=== PATIENT | female | born 1975 | race Caucasian/White ===

== ENCOUNTER → 2016-07-22 | Outpatient (REF) | payer OTHER ==
[~2016-07-22] MED LIST: ACET50TA PO; ACET50TAOT PO; ALPR0.5T3 PO; APAP325T PO; ASPI325T PO; ASPI32ECTA PO; ATEN50TA2 PO; DOCU10CA PO; ESCI10TA2 PO; GREE200C PO; HYDR50TAB PO; LEXA1TAB PO; MILKSUS PO; PROTPAK PO; SENO8.6T2 PO; TOPI50TA4 PO; TYLE325T5 PO; ZOCO20TA PO
[2016-07-22 13:42] LABS: REASON FOR REVIEW COMPREHENSIVE REVIEW
[2016-07-22 13:58] LABS: ERYTHROCYTE SEDIMENTATION RATE 31 mm/hr (0-20)
== END | disposition home or self-care (01) ==
LOC: M LAB REF 12:59
PROVIDERS: ATTEND Internal Medicine Medical Oncology
DX: D72.829 Elevated white blood cell count, unspecified (principal)

== ENCOUNTER → 2016-07-28 | Outpatient (REF) | payer OTHER | END | disposition home or self-care (01) | LOC: M LAB REF 12:27 | PROVIDERS: ATTEND Internal Medicine Medical Oncology | DX: D72.829 Elevated white blood cell count, unspecified (principal) ==

== ENCOUNTER → 2016-08-13 | Outpatient (REF) | payer OTHER ==
[2016-08-13 13:54] LABS: FOLATE 12.5 NG/ML
[2016-08-15 10:31] LABS: PRETREATED FOLATE FOR RBCFOL 8.2 NG/ML
== END | disposition home or self-care (01) ==
LOC: M LAB REF 13:00
PROVIDERS: ATTEND Internal Medicine Medical Oncology
DX: D72.829 Elevated white blood cell count, unspecified (principal)

== ENCOUNTER 2017-06-16 13:41 | Inpatient (IN) | payer OTHER ==
[~2017-06-16] VITALS: Ht 157.5 cm; Wt 104.3 kg
[~2017-06-16 13:41] MED LIST changes: -APAP325T PO; +APAP325T4 PO; +ASPI325T24 PO; -ASPI32ECTA PO; -SENO8.6T2 PO; +SENO8.6T5 PO; -TOPI50TA4 PO; +TOPI50TA9 PO
[2017-06-16] MEDS ORDERED: CEPH500C PO (14:06)
[2017-06-16] MEDS ORDERED: ESCI20TA PO (14:06)
--- NOTE | 2017-06-16 14:44 | REP ---
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 A small area of decreased attenuation is present in the right frontal lobe along a right ventricular shunt tube. This represents encephalomalacia. There is no intraparenchymal hemorrhage, acute infarct, mass or midline shift. A shunt is present with its tip in the anterior horn of the left lateral ventricle. There is no hydrocephalus. There is no extra cerebral collection. There is no fracture. The visualized sinuses are clear. IMPRESSION: 1. The patient is status post coiling of a right internal carotid artery . 2. Right parietal lobe encephalomalacia. 3. A shunt is present in the left lateral ventricle. There is no hydrocephalus. Signed by Robinson Rogers MD 06/16/2017 02:36 P
--- NOTE | 2017-06-16 15:43 | ECGEPIP ---
Stationary ECG Study [facility] - ED Test Date: 2017-06-16 Pat Name: SAMEER SILVA Department: Room: - Gender: F [employer] Lead: porsche : 1975 Requested By: BRENNA Hoffmann Order Number: [id number] Reading MD: Taty Meeks Measurements Intervals [place] Rate: 58 P: 6 RI: 122 QRS: -2 QRSD: 90 T: 30 QT: 418 QTc: 411 Interpretive Statements SINUS BRADYCARDIA DECREASED RATE 07/18/14 Electronically Signed On 06-16-2017 15:43:44 EST by Taty Meeks
[2017-06-16 16:22] LABS: ANION GAP 10 MEQ/L (8-16); BLOOD UREA NITROGEN 11 MG/DL (7-18); CALCIUM LEVEL 8.6 MG/DL (8.5-10.1); CARBON DIOXIDE LEVEL 22 MEQ/L (21-32); CHLORIDE LEVEL 110 MEQ/L (98-107); CREATININE FOR GFR 0.66 MG/DL (0.55-1.02); GLOMERULAR FILTRATION RATE > 60.0 (>58); GLUCOSE, FASTING 113 MG/DL (70-105); POTASSIUM SERUM 3.7 MEQ/L (3.5-5.1); SODIUM LEVEL 142 MEQ/L (136-145)
[2017-06-16 16:26] LABS: BASO # 0.1 10^3/uL (0.0-0.2); BASO % 0.8 % (0.0-1.0); EOS # 0.2 10^3/uL (0.0-0.50); EOS % 1.8 % (0.0-3.0); IMMATURE GRANULOCYTE % 0.3 % (0-0); LYMPH # 3.9 10^3/uL (1.5-4.5); LYMPH % 30.8 % (24.0-44.0); MEAN CORPUSCULAR HEMOGLOBIN 33.6 pg (27.0-33.0); MEAN CORPUSCULAR HGB CONC 34.5 g/dl (32.0-36.5); MEAN CORPUSCULAR VOLUME 97.2 fl (80.0-96.0); MONO # 0.9 10^3/uL (0.0-0.8); MONO % 7.4 % (0.0-5.0); NEUTROPHILS # 7.4 10^3/uL (1.8-7.7); NEUTROPHILS % 58.9 % (36.0-66.0); PLATELET COUNT, AUTOMATED 428 10^3/uL (150-450); WHITE BLOOD COUNT 12.5 10^3/uL (4.0-10.0)
[2017-06-16 17:20] LABS: ALBUMIN 3.4 GM/DL (3.2-5.2); ALBUMIN/GLOBULIN RATIO 0.89 (1.00-1.93); ALKALINE PHOSPHATASE 53 U/L (45-117); ALT/SGPT 27 U/L (12-78); AST/SGOT 11 U/L (7-37); BILIRUBIN,DIRECT < 0.1 MG/DL (0.0-0.2); BILIRUBIN,TOTAL 0.2 MG/DL (0.2-1.0); TOTAL PROTEIN 7.2 GM/DL (6.4-8.2)
[2017-06-16] MEDS ORDERED: ONDANSETRON 4MG/2ML VIAL (J2405) IV PRN (17:45)
--- NOTE | 2017-06-16 18:12 | REP ---
CT ABDOMEN AND PELVIS WITHOUT CONTRAST: HISTORY: Right lower quadrant pain. COMPARISON: 12/01/2014 The patient is status-post cholecystectomy. The liver, pancreas, spleen, adrenal glands and kidneys are normal in appearance. There is no mass or adenopathy. The visualized lungs are clear. The urinary bladder is normal in appearance. An IUD is present in the uterus. A small amount of fluid is present in the pelvis . A COSMETICS PRESSER shunt is present in the pelvis. There is a small 1.2 cm fat containing ventral abdominal hernia. Degenerative change is present in the spine. Two loculated fluid collections are present in the subcutaneous tissue along the right lateral abdomen. The anterior fluid collection measures 4.7 cm in transverse x 10 cm in AP dimensions. The posterior fluid collection measures 4.4 cm in transverse x 6.7 cm in AP dimensions. The fluid collections are decreased in size compared to the previous study. IMPRESSION: 1. The patient is status-post cholecystectomy. 2. There is a small amount of free fluid in the pelvis. 3. There are two loculated fluid collections in the subcutaneous tissue along the right lateral abdomen that are decreased in size compared to the previous study. 4. Small 1.2 cm ventral abdominal hernia. Signed by Robinson Rogers MD 06/16/2017 06:16 P
[2017-06-16] MEDS ORDERED: VITA500T53 PO (18:22)
[2017-06-16] MEDS ORDERED: ALPRAZolam 0.5 MG TAB PO PRN (18:45)
[2017-06-16 20:00] VITALS: BP 119/82
--- NOTE | 2017-06-16 20:20 | HPEPDOC ---
[facility] Medical History & Physical Date of Admission Jun 16, 2017 Primary Care Physician: Aissatou Mckeon Other Provider NEUROSURG: Dr. LOPEZ NEUROLOGY: [facility] [place]: Dr Perez Attending Physician: EVI REGAN MD History and Physical CHIEF COMPLAINT: Right facial numbness, right-sided weakness HISTORY OF PRESENT ILLNESS: 42-year-old female presents to the emergency department with acute onset of right facial numbness, right-sided weakness and difficulty with right-sided motor and dysarthria. She states this was an acute onset chest prior history of brain aneurysm with coil in 2006 as well. CAP SIZER shunt placement. 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 And was concerned that this may be a presenting symptom again this evening. She denies any visual disturbance or phobia, headache, nausea or vomiting. Her is with her in the room and he denies noticing any slurred speech nor difficulty with swallowing. But she has had noted ataxia. She relates to her right-sided weakness. Additionally, she is complaining of some vague abdominal pain that started earlier today. Located in the right lower quadrant with radiation to the right upper and mid abdomen area. She denies fevers, chills, diarrhea, dysuria, frequency, and no back pain. ED physician did contact the stroke center and [place]. They did not feel that she was a candidate for TPA. However, they did feel that she should be admitted for further workup, but did not feel that she needed to be transferred at this time. I've already spoken to Dr. Lr who is agreed to see the patient on consult as well. PAST MEDICAL HISTORY: Hypertension. History of seizure disorder. Panic attacks Right middle cerebral artery aneurysm repair/coiling in 2006 with CAP SIZER shunt placement History of tobacco use. Morbid obesity PAST SURGICAL HISTORY: Status post cholecystectomy. Right middle cerebral artery aneurysm repair/coiling in 2006 with CAP SIZER shunt placement SOCIAL HISTORY: She states she has been under some situational stress with her 17-year-old son at home but did not want to go any further detail, but she denied any suicidal ideation. Occasional tobacco use. She denies drug or alcohol use. FAMILY HISTORY: Noncontributory ALLERGIES: Please see below. REVIEW OF SYSTEMS: CONSTITUTIONAL: No fever, chills, weight loss, nausea or vomiting . HEENT: No headache, lightheadedness, blurred or loss of vision. No difficulty with speech or swallow. CARDIOVASCULAR: No chest pain, palpitations, paroxysmal nocturnal dyspnea or lower extremity edema RESPIRATORY: No cough, productive sputum, wheeze or hemoptysis GENITOURINARY: No dysuria, frequency, or discharge MUSCULOSKELETAL: Discoordination is noted with right upper and lower extremity. No bone, muscle or joint pain. GASTROINTESTINAL: No Nausea, vomiting, change in appetite. Bowel movements are regular without hematochezia or melena. No bladder or bowel incontinence. SKIN: No complaint of lesions, abrasions or rashes NEUROLOGICAL: Right facial numbness without facial droop or slurred speech. No blurred vision, headaches, or flaccid paralysis PSYCHIATRIC: History of anxiety. She feels that she may have some situational depression. However, she denies Audiovisual hallucinations. No suicidal ideations. ENDOCRINE: Denies history of diabetes or thyroid disorder. No history of endocrine abnormalities. HEMATOLOGIC/LYMPHATIC: No lumps, bumps or swelling of neck, axilla or groin. No night sweats or weight loss. HOME MEDICATIONS: Please see below. PHYSICAL EXAMINATION: VITAL SIGNS: Please see below. GENERAL: NAD, A&OX3, Pleasant HEENT: PERRLA, throat clear, neck supple, no JVD CARDIOVASCULAR: RRR RESPIRATORY: CTA Bilaterally ABDOMINAL: Obesity, Vague tenderness noted over the right abdomen. Normoactive bowel sounds. No palpable mass or rebound EXTREMITIES: no edema/no calf tenderness NEUROLOGICAL: CN'S II-XII grossly intact. However, she does have some noted discoordination with movement of the right upper extremity, more notably with search coordinator strength PSYCHOLOGICAL: negative LABORATORY DATA: See below. IMAGING: [ Head CT without contrast: 1. The patient is status post coiling of a right internal carotid artery . 2. Right parietal lobe encephalomalacia. 3. A shunt is present in the left lateral ventricle. There is no hydrocephalus. CT of the abdomen and pelvis without contrast: 1. The patient is status-post cholecystectomy. 2. There is a small amount of free fluid in the pelvis. 3. There are two loculated fluid collections in the subcutaneous tissue along the right lateral abdomen that are decreased in size compared to the previous study. 4. Small 1.2 cm ventral abdominal hernia. MICROBIOLOGY: Please see below. Twelve-lead EKG: Sinus bradycardia with ventricular rate of 58, but no acute ST- T wave abnormalities noted. IMPRESSION: 42-year-old female with dysarthria/discoordination involving the right upper and lower extremity with facial numbness. Additional complaint of some abdominal discomfort with no specific findings on CT of the abdomen and pelvis. Case has been reviewed with stroke center in [place]. She was not felt to be a TPA candidate. And recommendation was admit to [facility] with further workup and neurology consult. PROBLEM LIST: 1. CVA versus TIA 2. Acute abdominal pain with no significant findings on CT the abdomen and pelvis. 3. Hypertension. 4. History of seizure disorder. 5. Panic attacks 6. Right middle cerebral artery aneurysm repair/coiling in 2006 with CAP SIZER shunt placement 7. History of tobacco use. 8. Morbid obesity: November, medical treatment PLAN: She will be admitted to PCU with 4 hour neuro checks, on telemetry. Neurology has had an opportunity to see the patient in the emergency department and recommends her to continue on aspirin 81 mg daily for the next 2-3 days while she starts on Plavix 75 mg daily. We will continue her on current statin therapy. Continue home medications. PT/OT evaluation. MRI and MRA of the brain and carotids with gadolinium has been ordered. Appreciate further input from neurology in the morning. DVT PROPHYLAXIS: Aspirin, Plavix and teds and sequentials DISPOSITION: Anticipate hospitalization greater than 2 midnights. Vital Signs Vital Signs Date Time Temp Pulse Resp B/P (MAP) Pulse Ox O2 Delivery O2 Flow Rate FiO2 06/16/17 17:11 54 100 06/16/17 17:10 18 145/85 (105) 06/16/17 16:23 Room Air 06/16/17 13:42 97.9 Laboratory Data Labs 24H Laboratory Tests 2 06/16/17 15:59: Immature Granulocyte % (Auto) 0.3H, White Blood Count 12.5H, Red Blood Count 4.35, Hemoglobin 14.6, Hematocrit 42.3, Mean Corpuscular Volume 97.2H, Mean Corpuscular Hemoglobin 33.6H, Mean Corpuscular Hemoglobin Concent 34.5, Red Cell Distribution Width 14.0, Platelet Count 428, Neutrophils (%) (Auto) 58.9, Lymphocytes (%) (Auto) 30.8, Monocytes (%) (Auto) 7.4H, Eosinophils (%) (Auto) 1.8, Basophils (%) (Auto) 0.8, Neutrophils # (Auto) 7.4, Lymphocytes # (Auto) 3.9, Monocytes # (Auto) 0.9H, Eosinophils # (Auto) 0.2, Basophils # (Auto) 0.1, Immature Granulocyte # (Auto) 0.0, Nucleated Red Blood Cells % (auto) 0.0, Urine Appearance CLEAR, Urine Color STRAW, Urine pH 7.0, Urine Specific [place] 1.010, Urine Protein NEGATIVE, Urine Glucose (UA) NEGATIVE, Urine Ketones NEGATIVE, Urine Urobilinogen 0.2, Urine Bilirubin NEGATIVE, Urine Leukocyte Esterase NEGATIVE, Urine Blood NEGATIVE, Urine Nitrite NEGATIVE, Urine WBC (Auto ) 1, Urine RBC (Auto) 0, Urine Hyaline Casts (Auto) 0, Urine Bacteria (Auto) NEGATIVE, Urine Squamous Epithelial Cells 2, Urine Sperm (Auto) , Anion Gap 10, Glomerular Filtration Rate > 60.0, Blood Urea Nitrogen 11, Creatinine 0.66, Sodium Level 142, Potassium Level 3.7, Chloride Level 110H, Carbon Dioxide Level 22, Calcium Level 8.6, Aspartate Amino Transf (AST/SGOT) 11, Alanine Aminotransferase (ALT/SGPT) 27, Alkaline Phosphatase 53, Total Bilirubin 0.2, Direct Bilirubin < 0.1, Total Protein 7.2, Albumin 3.4, Albumin/Globulin Ratio 0.89L, Lipase 125 06/16/17 18:23: Total Creatine Kinase 81, Creatine Kinase MB 2.0, Creatine Kinase MB Relative Index 2.46, Troponin I < 0.02 CBC/BMP Laboratory Tests 06/16/17 15:59 Red Blood Count 4.35, Mean Corpuscular Volume 97.2 H, Mean Corpuscular Hemoglobin 33.6 H, Mean Corpuscular Hemoglobin Concent 34.5, Red Cell Distribution Width 14.0, Neutrophils (%) (Auto) 58.9, Lymphocytes (%) (Auto) 30.8, Monocytes (%) (Auto) 7.4 H, Eosinophils (%) (Auto) 1.8, Basophils (%) ( Auto) 0.8, Neutrophils # (Auto) 7.4, Lymphocytes # (Auto) 3.9, Monocytes # (Auto ) 0.9 H, Eosinophils # (Auto) 0.2, Basophils # (Auto) 0.1, Calcium Level 8.6 Home Medications Scheduled Aspirin (Aspirin EC) 325 Mg Tabec, 325 MG PO DAILY Atenolol (Atenolol) 50 Mg Tab, 50 MG PO DAILY Cephalexin Monohydrate (Cephalexin) 500 Mg Cap, 5,100 MG PO BID filled / for 10 days Cyanocobalamin (Vitamin B12) 500 Mcg Tab, 500 MCG PO DAILY Escitalopram Oxalate (Escitalopram Oxalate) 20 Mg Tab, 20 MG PO DAILY Simvastatin (Zocor) 20 Mg Tab, 20 MG PO DAILY Topiramate (Topiramate) 50 Mg Tab, 150 MG PO BID Scheduled PRN Acetaminophen (Apap) 325 Mg Tab, 650 MG PO Q4HP PRN for MILD PAIN (PS 1-4) Alprazolam (Alprazolam) 0.5 Mg Tab, 0.5 MG PO BIDP PRN for ANXIETY Allergies Coded Allergies: Contrast Media (Verified Allergy, Severe, ANAPHYLAXIS, 11/24/07) Penicillins (Verified Allergy, Mild, HIVES, 10/12/12) Penicillins Cross Reactors (Verified Allergy, Mild, HIVES, 10/12/12) MILO [place]S DO Jun 16, 2017 20:20
[2017-06-16] MEDS: TOPIRAMATE (TopAMAX) 25 MG TAB PO SCH (21:16)
[2017-06-16] MEDS: DOCUSATE SODIUM 100 MG CAP PO SCH (21:16)
[2017-06-16] MEDS: ACETAMINOPHEN TAB 650MG DOSE (2X325MG) PO PRN (23:25)
[2017-06-17] VITALS: BP 125/77
[2017-06-17 04:00] VITALS: BP 125/73
[2017-06-17] MEDS: ACETAMINOPHEN TAB 650MG DOSE (2X325MG) PO PRN ×2 (05:07→13:33)
[2017-06-17 06:08] LABS: MEAN CORPUSCULAR HEMOGLOBIN 33.3 pg (27.0-33.0); MEAN CORPUSCULAR HGB CONC 34.1 g/dl (32.0-36.5); MEAN CORPUSCULAR VOLUME 97.5 fl (80.0-96.0); PLATELET COUNT, AUTOMATED 405 10^3/uL (150-450); RED CELL DISTRIBUTION WIDTH 13.9 % (11.5-14.5); WHITE BLOOD COUNT 12.9 10^3/uL (4.0-10.0)
[2017-06-17 06:28] LABS: ANION GAP 8 MEQ/L (8-16); BLOOD UREA NITROGEN 13 MG/DL (7-18); CALCIUM LEVEL 8.5 MG/DL (8.5-10.1); CARBON DIOXIDE LEVEL 20 MEQ/L (21-32); CHLORIDE LEVEL 109 MEQ/L (98-107); GLOMERULAR FILTRATION RATE > 60.0 (>58); GLUCOSE, FASTING 104 MG/DL (70-105); POTASSIUM SERUM 3.7 MEQ/L (3.5-5.1); SODIUM LEVEL 137 MEQ/L (136-145)
[2017-06-17 08:00] VITALS: BP 119/72
[2017-06-17] MEDS ORDERED: SIMVASTATIN 20 MG TAB PO SCH (09:00)
[2017-06-17] MEDS ORDERED: CLOPIDOGREL 75 MG TAB PO SCH (09:00)
[2017-06-17] MEDS ORDERED: ATENOLOL 50 MG TAB PO SCH (09:00)
[2017-06-17] MEDS ORDERED: MIRALAX *UNIT DOSE* 17GM PACKET PO SCH (09:00)
[2017-06-17] MEDS ORDERED: ESCITALOPRAM OXALATE 10 MG TAB (LEXAPRO) PO SCH (09:00)
[2017-06-17] MEDS ORDERED: TOPIRAMATE (TopAMAX) 100 MG TAB PO SCH (09:00)
[2017-06-17] MEDS ORDERED: ASPIRIN 81 MG ENTERIC TAB PO SCH (09:00)
[2017-06-17] MEDS ORDERED: TOPIRAMATE (TopAMAX) 25 MG TAB PO SCH (09:00)
[2017-06-17] MEDS ORDERED: CYANOCOBALAMIN 500 MCG TAB PO SCH (09:00)
[2017-06-17] MEDS: TOPIRAMATE (TopAMAX) 25 MG TAB PO SCH (09:00)
[2017-06-17 09:11] VITALS: BP 119/72
[2017-06-17] MEDS: DOCUSATE SODIUM 100 MG CAP PO SCH (09:11)
[2017-06-17] MEDS ORDERED: ALPRAZolam 0.25 MG TAB PO PRN (09:30)
[2017-06-17] MEDS ORDERED: PROHANCE 279.3MG/ML 15ML VIAL (A9576) As Ordered ONE (10:07)
--- NOTE | 2017-06-17 12:49 | REP ---
MR BRAIN WITHOUT CONTRAST: HISTORY: TIA. 3D srsh-ka-udffam MR angiography was performed at the level of the [place]. Comparison 07/18/2014. 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 There is loss of the normal hyperintense signal in the superior cavernous and supraclinoid right internal carotid artery secondary to artifact. There is no recurrent aneurysm. There is no new aneurysm or arteriovenous malformation. There are no atherosclerotic lesions. The major intracranial vessels are patent. The vertebral arteries are equal in size. 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 There is no recurrent aneurysm. Signed by Robinson Rogers MD 06/17/2017 02:46 P
[2017-06-17 13:05] VITALS: BP 118/79
--- NOTE | 2017-06-17 13:35 | REP ---
MRA CAROTIDS WITH AND WITHOUT CONTRAST: HISTORY: TIAs. CONTRAST: ProHance 25 mL. Unenhanced 3D kvbg-cd-wvxfic and contrast enhanced MR angiography were performed at the level of the carotid bifurcations. The examination is limited due to technical issues. The distal common carotid arteries and origins of the external and internal carotid arteries are normal. The vertebral arteries are equal in size and patent. There are no atherosclerotic lesions. IMPRESSION: Normal MRA carotids. Signed by Robinson Rogers MD 06/17/2017 02:45 P
--- NOTE | 2017-06-17 15:08 | REP ---
MR BRAIN WITHOUT CONTRAST: HISTORY: TIA. COMPARISON: 01/08/2015. A small area of increased signal intensity on T2-weighted images is present in the right thalamus. This represents an old lacunar infarction. Mixed increased and decreased signal intensity on T2-weighted images is present in the posterior right temporal lobe. This represents gliosis and hemosiderin along a ventricular shunt. Areas of increased signal intensity on T2-weighted images are present in the periventricular and subcortical white matter. This represents small vessel ischemic disease. There is no acute intraparenchymal hemorrhage, acute infarct, mass, or midline shift. A shunt is present in the body of the left lateral ventricle. There is no hydrocephalus or extracerebral collection. 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 A small amount of metal artifact is present in the right supraclinoid area. The sinuses are clear. IMPRESSION: 1. Old right thalamic lacunar infarction. 2. There is an of gliosis with hemosiderin deposition in the posterior right temporal lobe along a ventricular shunt. 3. Small vessel ischemic disease. 4. 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 Signed by Robinson Rogers MD 06/17/2017 03:21 P
--- NOTE | 2017-06-17 15:34 | DS.PDOC ---
Discharge Summary General Date of Admission Jun 16, 2017 at 17:08 Date of Discharge 06/17/17 Specialist/Consultants Involve: SOHAIL DIAZ MD Discharge Summary PROCEDURES PERFORMED DURING STAY: None. ADMITTING/DISCHARGE DIAGNOSES: 1. . TIA COMPLICATIONS/CHIEF COMPLAINT: Right Sided Weakness. HISTORY OF PRESENT ILLNESS: . 42-year-old female with past medical history of hypertension, seizure disorder, panic attacks, tobacco use, morbid obesity, and right middle cerebral artery aneurysm s/p repair/coiling in 2006 with CORPORATE SAFETY MANAGER shunt placement presented to the ER with a chief complaint of right-sided facial droop, slurring of speech, and right upper and right lower extremity weakness. The patient denied any visual disturbance, headache, nausea, vomiting, or any acute complaints of fevers, chills, diarrhea, dysuria, frequency, or any other acute complaints. In the ER, the stroke center at [facility] was contacted given the patient's clinical history , and complaints. However, the patient was not deemed a candidate for TPA therapy. The patient was admitted to the hospitalist service for further evaluation and monitoring. A consult was placed to Dr. Gonzalez of neurology, who evaluated the patient in the ER. A CT scan of the head revealed no acute findings. During hospitalization, an MRI of the brain, MRA of the brain, and MRA of the carotid arteries revealed no acute findings. The patient's neurological symptoms of right-sided facial droop, and right-sided weakness resolved during her hospital stay. I did discuss the patient's clinical course, and imaging findings with the patient's neurologist from the [place], [place] area, Dr. Weems ([phone]), as well as our in-house neurologist, Dr. Gonzalez. At this time, the patient's medication regimen has been changed to Plavix 75 mg daily and simvastatin. The patient has been advised to continue aspirin 81mg for a total of 5 days in addition to her Plavix, and then to discontinue the aspirin. I have went over these instructions with the patient and her at the bedside, and they have verbalized understanding of the same. I have advised the patient to follow-up with her primary care physician within 7 days. She has also been instructed to follow-up with her neurologist within 1-2 weeks. The patient has been consulted to return to the ER for any acute emergencies. DISCHARGE MEDICATIONS: Please see below. ALLERGIES: Please see below. PHYSICAL EXAMINATION ON DISCHARGE: VITAL SIGNS: Please see below. GENERAL: Awake, alert, oriented 4 HEENT: Normocephalic, atraumatic NECK: No JVD CARDIOVASCULAR EXAMINATION: Normal rate, normal S1, S2 RESPIRATORY EXAMINATION: Clear to auscultation bilaterally ABDOMINAL EXAMINATION: Soft, nontender, nondistended EXTREMITIES: No erythema or tenderness NEUROLOGICAL EXAMINATION: 5/5 strength of extremities 4, cranial nerves II-11 intact PSYCHIATRIC EXAMINATION: LABORATORY DATA: Please see below. IMAGING: MRA CAROTIDS WITH AND WITHOUT CONTRAST: HISTORY: TIAs. CONTRAST: ProHance 25 mL. Unenhanced 3D otxb-na-lalczn and contrast enhanced MR angiography were performed at the level of the carotid bifurcations. The examination is limited due to technical issues. The distal common carotid arteries and origins of the external and internal carotid arteries are normal. The vertebral arteries are equal in size and patent. There are no atherosclerotic lesions. IMPRESSION: Normal MRA carotids. MR BRAIN WITHOUT CONTRAST: HISTORY: TIA. 3D ipac-td-suyeqy MR angiography was performed at the level of the [place] of [place]. Comparison 07/18/2014. 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 There is loss of the normal hyperintense signal in the superior cavernous and supraclinoid right internal carotid artery secondary to artifact. There is no recurrent aneurysm. There is no new aneurysm or arteriovenous malformation. There are no atherosclerotic lesions. The major intracranial vessels are patent. The vertebral arteries are equal in size. 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 There is no recurrent aneurysm. PROGNOSIS: Fair ACTIVITY: As tolerated. DIET: . 2 g low sodium diet DISCHARGE PLAN: DISPOSITION: . Home DISCHARGE INSTRUCTIONS: The patient has been advised to continue aspirin 81mg for a total of 5 days in addition to her Plavix, and then to discontinue the aspirin. I have went over these instructions with the patient and her at the bedside, and they have verbalized understanding of the same. I have advised the patient to follow- up with her primary care physician within 7 days. She has also been instructed to follow-up with her neurologist within 1-2 weeks. The patient has been consulted to return to the ER for any acute emergencies. DISCHARGE CONDITION: Stable. TIME SPENT ON DISCHARGE: Greater than 30 minutes. Vital Signs/I&Os Vital Signs Date Time Temp Pulse Resp B/P (MAP) Pulse Ox O2 Delivery O2 Flow Rate FiO2 06/17/17 13:05 96.6 63 18 118/79 (92) 97 Room Air I&O- Last 24 Hours up to 6 AM 06/18/17 06:00 Intake Total 240 ml Balance 240 ml Laboratory Data Labs 24H Laboratory Tests 2 06/16/17 15:59: Immature Granulocyte % (Auto) 0.3H, White Blood Count 12.5H, Red Blood Count 4.35, Hemoglobin 14.6, Hematocrit 42.3, Mean Corpuscular Volume 97.2H, Mean Corpuscular Hemoglobin 33.6H, Mean Corpuscular Hemoglobin Concent 34.5, Red Cell Distribution Width 14.0, Platelet Count 428, Neutrophils (%) (Auto) 58.9, Lymphocytes (%) (Auto) 30.8, Monocytes (%) (Auto) 7.4H, Eosinophils (%) (Auto) 1.8, Basophils (%) (Auto) 0.8, Neutrophils # (Auto) 7.4, Lymphocytes # (Auto) 3.9, Monocytes # (Auto) 0.9H, Eosinophils # (Auto) 0.2, Basophils # (Auto) 0.1, Immature Granulocyte # (Auto) 0.0, Nucleated Red Blood Cells % (auto) 0.0, Urine Appearance CLEAR, Urine Color STRAW, Urine pH 7.0, Urine Specific [place] 1.010, Urine Protein NEGATIVE, Urine Glucose (UA) NEGATIVE, Urine Ketones NEGATIVE, Urine Urobilinogen 0.2, Urine Bilirubin NEGATIVE, Urine Leukocyte Esterase NEGATIVE, Urine Blood NEGATIVE, Urine Nitrite NEGATIVE, Urine WBC (Auto ) 1, Urine RBC (Auto) 0, Urine Hyaline Casts (Auto) 0, Urine Bacteria (Auto) NEGATIVE, Urine Squamous Epithelial Cells 2, Urine Sperm (Auto) , Anion Gap 10, Glomerular Filtration Rate > 60.0, Blood Urea Nitrogen 11, Creatinine 0.66, Sodium Level 142, Potassium Level 3.7, Chloride Level 110H, Carbon Dioxide Level 22, Calcium Level 8.6, Aspartate Amino Transf (AST/SGOT) 11, Alanine Aminotransferase (ALT/SGPT) 27, Alkaline Phosphatase 53, Total Bilirubin 0.2, Direct Bilirubin < 0.1, Total Protein 7.2, Albumin 3.4, Albumin/Globulin Ratio 0.89L, Lipase 125 06/16/17 18:23: Total Creatine Kinase 81, Creatine Kinase MB 2.0, Creatine Kinase MB Relative Index 2.46, Troponin I < 0.02 06/17/17 02:43: Total Creatine Kinase 70, Creatine Kinase MB 1.7, Creatine Kinase MB Relative Index 2.42, Troponin I < 0.02 06/17/17 05:27: Nucleated Red Blood Cells % (auto) 0.0, Anion Gap 8, Glomerular Filtration Rate > 60.0, Blood Urea Nitrogen 13, Creatinine 0.50L, Sodium Level 137, Potassium Level 3.7, Chloride Level 109H, Carbon Dioxide Level 20L, Calcium Level 8.5 06/17/17 09:48: Total Creatine Kinase 68, Creatine Kinase MB 1.7, Creatine Kinase MB Relative Index 2.50, Troponin I < 0.02 CBC/BMP Laboratory Tests 06/16/17 15:59 Red Blood Count 4.35, Mean Corpuscular Volume 97.2 H, Mean Corpuscular Hemoglobin 33.6 H, Mean Corpuscular Hemoglobin Concent 34.5, Red Cell Distribution Width 14.0, Neutrophils (%) (Auto) 58.9, Lymphocytes (%) (Auto) 30.8, Monocytes (%) (Auto) 7.4 H, Eosinophils (%) (Auto) 1.8, Basophils (%) ( Auto) 0.8, Neutrophils # (Auto) 7.4, Lymphocytes # (Auto) 3.9, Monocytes # (Auto ) 0.9 H, Eosinophils # (Auto) 0.2, Basophils # (Auto) 0.1, Calcium Level 8.6 06/17/17 05:27 Red Blood Count 4.39, Mean Corpuscular Volume 97.5 H, Mean Corpuscular Hemoglobin 33.3 H, Mean Corpuscular Hemoglobin Concent 34.1, Red Cell Distribution Width 13.9, Calcium Level 8.5 Discharge Medications Scheduled Aspirin (Aspirin EC) 325 Mg Tabec, 325 MG PO DAILY, (Reported) Atenolol (Atenolol) 50 Mg Tab, 50 MG PO DAILY, (Reported) Cephalexin Monohydrate (Cephalexin) 500 Mg Cap, 5,100 MG PO BID, (Reported) filled 06/12 for 10 days Cyanocobalamin (Vitamin B12) 500 Mcg Tab, 500 MCG PO DAILY, (Reported) Escitalopram Oxalate (Escitalopram Oxalate) 20 Mg Tab, 20 MG PO DAILY, (Reported ) Simvastatin (Zocor) 20 Mg Tab, 20 MG PO DAILY, (Reported) Topiramate (Topiramate) 50 Mg Tab, 150 MG PO BID, (Reported) Scheduled PRN Acetaminophen (Apap) 325 Mg Tab, 650 MG PO Q4HP PRN for MILD PAIN (PS 1-4), ( Reported) Alprazolam (Alprazolam) 0.5 Mg Tab, 0.5 MG PO BIDP PRN for ANXIETY, (Reported) Allergies Coded Allergies: Contrast Media (Verified Allergy, Severe, ANAPHYLAXIS, 11/24/07) Penicillins (Verified Allergy, Mild, HIVES, 10/12/12) Penicillins Cross Reactors (Verified Allergy, Mild, HIVES, 10/12/12) KEY KIMBALL MD Jun 17, 2017 15:34
[2017-06-17] MEDS ORDERED: CLOP75TA2 PO (15:35)
[2017-06-17] MEDS ORDERED: ASPI81TAEC PO (15:35)
--- NOTE | 2017-06-17 15:40 | CR ---
DATE OF NEUROLOGY CONSULTATION: 06/16/2017 REFERRING PHYSICIAN: Jeremias Christina MD REASON FOR CONSULTATION: Suspected transient ischemic attack (TIA) or stroke. 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 The patient has been on aspirin 325 mg since 07/18/2014 at the last stroke. The patient states that she continues to smoke. The patient states she smokes half a pack a day; however, that has been clarified that the patient is actually smoking a minimum of one full pack a day. The patient herself is a poor historian regarding describing the events of today. She states most of her discomfort today involves right lower abdominal pain. She will be worked up for this during this admission. In the meantime, the patient had a head CT, which was unrevealing for any new strokes. She will be having an MRI of the brain, MR angiogram of the head, and MR angiogram of the neck with and without gadolinium to assess for any stenosis. She currently uses simvastatin 20 mg every day. She denies any left upper or lower extremity symptoms. The patient's states that the patient has a right-sided facial droop. The patient is having some word-finding difficulties at times. Her blood pressure has been in the 130s to 140s during the admission. REVIEW OF SYSTEMS: 14-point review of systems is obtained and negative except as per history of present illness (HPI). PAST MEDICAL HISTORY: Hypertension. History of seizure. Panic attacks. Cholecystectomy. Status post foot surgery. Right middle cerebral artery (MCA) aneurysm, status post rupture and coiling and clipping. FAMILY HISTORY: Noncontributory. SOCIAL HISTORY: The patient smokes one pack of tobacco per day. Denies use of alcohol or illicit drugs. PHYSICAL EXAMINATION: Blood pressure is 137/84, pulse rate is 78, respiratory rate is 20, oxygenation 99% on room air. Patient is afebrile. NEUROLOGIC EXAM: Patient is able to speak without any significant dysarthria. The patient at times gets flustered and has some stuttering. Pupils are 3 mm, round, reactive to light. Extraocular movements are intact in all directions without nystagmus. Sensation in V1, V2, V3 is decreased to light touch over the right side compared to the left. There is slight flattening of the right nasolabial fold with mild facial weakness. Patient can raise eyebrows well. Tongue is midline. There is significant weakness of the right upper extremity. At times, the patient has reasonable strength but has significant give-way weakness. [id number] in bilateral upper extremities does not reveal any gross ataxia or dysmetria. Strength testing in bilateral lower extremities is unremarkable and normal, 5/5. Deep tendon reflexes are 2+ throughout. Babinski signs are absent. Sensory is intact to light touch on the left side; however, slightly decreased to light touch on the right side. Gait deferred. ASSESSMENT: 42-year-old female with history of subarachnoid hemorrhage secondary to ruptured right MCA aneurysm, history of left thalamic stroke, prior stroke in July 2014, and prior stroke in 2007, presenting with symptoms of worsening right upper extremity weakness, occasional word-finding difficulties, and worsening paresthesias of the right upper and lower extremity and face. PLAN: 1. Obtain MRI brain without contrast, MR angiogram head without contrast, MR angiogram neck with and without contrast. 2. Switch to Plavix 75 mg by mouth daily. Cut back aspirin to 81 mg by mouth daily for next 5 days, then discontinue. Continue simvastatin 20 mg by mouth daily. Physical therapy (PT)/occupational therapy (OT) evaluation. Management of right lower abdominal pain as per primary team. Recommend telemetry monitoring.
== END 2017-06-17 16:18 | disposition home or self-care (01) | DRG 47 ==
LOC: M ED 13:41 → M ED INP 17:08
PROVIDERS: ADMIT Hospitalist; ATTEND Hospitalist
DX: G45.9 Transient cerebral ischemic attack, unspecified (principal); Z68.41 Body mass index [BMI] 40.0-44.9, adult; E66.01 Morbid (severe) obesity due to excess calories; R10.31 Right lower quadrant pain; G40.909 Epilepsy, unspecified, not intractable, without status epilepticus; F41.0 Panic disorder [episodic paroxysmal anxiety]; R47.1 Dysarthria and anarthria; R29.810 Facial weakness; K43.9 Ventral hernia without obstruction or gangrene; Z79.82 Long term (current) use of aspirin; Z98.2 Presence of cerebrospinal fluid drainage device; Z79.899 Other long term (current) drug therapy; Z88.0 Allergy status to penicillin; Z91.041 Radiographic dye allergy status; Z87.891 Personal history of nicotine dependence

== ENCOUNTER → 2018-05-20 | Outpatient (CLI) | payer OTHER | LOC: M RAD 14:00 | DX: Z98.2 Presence of cerebrospinal fluid drainage device (principal) | CPT/HCPCS: 75809 ==

== ENCOUNTER 2019-05-20 10:53 | Emergency (ER) | payer OTHER ==
[~2019-05-20] VITALS: Ht 157.5 cm; Wt 95.5 kg
[~2019-05-20 10:53] MED LIST changes: +ACET500T15 PO; -ACET50TA PO; -ACET50TAOT PO; +ASPI-1 PO; +ASPI-255 PO; -ASPI325T PO; -ASPI325T24 PO; +ASPI81TAEC PO; +CEPH500C PO; +CLOP75TA2 PO; +ESCI20TA PO; +MAPA500T2 PO; +MILK120011 PO; -MILKSUS PO; +VITA500T17 PO
[2019-05-20 11:10] VITALS: BP 180/92
[2019-05-20] MEDS ORDERED: PRED20TA PO (11:17)
--- NOTE | 2019-05-20 13:01 | REP ---
CT brain: 05/20/2019. Indication: Stroke. Comparison: 06/16/2017. Technique: Unenhanced axial images of the head were obtained from skull base to vertex. Findings: Right parietal approach ventriculostomy shunt catheter is present with minimal adjacent edema along the course of the catheter. The distal tip is near the foramen of Monro on the left which is stable. There is no hydrocephalus. There is no acute intracranial hemorrhage, acute cortical infarction or significant mass effect. Sequelae of previous distal right ICA aneurysm coil ablation are redemonstrated. The configuration of the coils remains stable. Impression: No acute intracranial process. Right parietal approach ventriculostomy shunt catheter without hydrocephalous. Postprocedural sequelae status post endovascular coil ablated distal right ICA aneurysm. Electronically Signed by Aaron Rivas DO 05/20/2019 12:53 P
--- NOTE | 2019-05-20 13:31 | REP ---
Duplex extremity venous ultrasound: Bilateral lower extremity. History: Bilateral leg pain. Question DVT. Findings: The deep veins are anechoic and fully compressible from the groin to the popliteal fossa in the left and right lower extremity. Color flow imaging is homogeneous. Spectral Doppler interrogation demonstrates intact respiratory variation in flow and normal manual augmentation of flow. There is no evidence of deep vein thrombosis. Impression: Negative bilateral lower extremity duplex venous ultrasound. No evidence of deep vein thrombosis. Electronically Signed by Pieter Cervantes MD 05/20/2019 01:23 P
[2019-05-20 13:57] LABS: BASO % 0.1 % (0.0-1.0); HEMOGLOBIN 14.7 g/dl (12.0-15.5); LYMPH # 3.9 10^3/uL (1.5-5.0); LYMPH % 18.4 % (24.0-44.0); MEAN CORPUSCULAR HEMOGLOBIN 33.9 pg (27.0-33.0); MEAN CORPUSCULAR HGB CONC 33.4 g/dl (32.0-36.5); MEAN CORPUSCULAR VOLUME 101.6 fl (80.0-96.0); MONO # 1.1 10^3/uL (0.0-0.8); MONO % 5.3 % (0.0-5.0); NEUTROPHILS % 75.4 % (36.0-66.0); PLATELET COUNT, AUTOMATED 374 10^3/uL (150-450); RED BLOOD COUNT 4.33 10^6/uL (4.00-5.40); WHITE BLOOD COUNT 21.2 10^3/uL (4.0-10.0)
[2019-05-20 14:09] LABS: INR 0.98; PROTHROMBIN TIME 12.7 SECONDS (11.8-14.0)
[2019-05-20 14:10] LABS: PARTIAL THROMBOPLASTIN TIME 25.8 SECONDS (25.0-38.4)
--- NOTE | 2019-05-20 14:14 | REP ---
Left knee series: Five views. History: Severe pain. Findings: Five views of the left knee demonstrate mild old post-traumatic deformity of the distal femoral diaphysis. There is a fabella posterolaterally. There is some vascular calcification as well. No acute fracture, subluxation or joint effusion is evident. Impression: No acute bony abnormality. Old mild post-traumatic deformity distal femur. Electronically Signed by Pieter Cervantes MD 05/20/2019 02:06 P
--- NOTE | 2019-05-20 14:23 | REP ---
Four views of the patient: 05/20/2019. Indication: Mental status change. Comparison: 11/06/2014. Findings: The ventriculoperitoneal shunt is intact with evidence of previous surgical/procedural sequelae in the right lower quadrant of the abdomen. Impression: Intact CHIEF WARDEN shunt. Electronically Signed by Aaron Rivas DO 05/20/2019 02:15 P
[2019-05-20 14:26] LABS: CK-MB VALUE MASS 1.2 NG/ML (<3.6); MB/CK RELATIVE INDEX 2.45 (< OR =4)
== END 2019-05-20 15:37 | disposition home or self-care (01) ==
LOC: M ED 10:53
DX: I83.813 Varicose veins of bilateral lower extremities with pain (principal); M25.511 Pain in right shoulder; M54.2 Cervicalgia; R06.02 Shortness of breath; T38.0X5A Adverse effect of glucocorticoids and synthetic analogues, initial encounter; I10 Essential (primary) hypertension; E78.5 Hyperlipidemia, unspecified; R51 Headache; Z86.73 Personal history of transient ischemic attack (TIA), and cerebral infarction without residual deficits; I67.1 Cerebral aneurysm, nonruptured; Z88.0 Allergy status to penicillin; Z91.041 Radiographic dye allergy status; Z79.899 Other long term (current) drug therapy; Z79.02 Long term (current) use of antithrombotics/antiplatelets; Z98.2 Presence of cerebrospinal fluid drainage device

== ENCOUNTER 2020-12-18 12:22 | Observation (INO) | payer BC, OTHER ==
[~2020-12-18] VITALS: Ht 157.5 cm; Wt 90.9 kg
[~2020-12-18 12:22] MED LIST changes: +ASPI-569 PO; -ASPI81TAEC PO; +ESCI10TA16 PO; -ESCI10TA2 PO; -ESCI20TA PO; +ESCI20TA16 PO; +PRED20TA PO
[2020-12-18 14:42] LABS: BASO # 0.1 10^3/uL (0.0-0.2); BASO % 0.5 % (0.0-1.0); EOS # 0.2 10^3/uL (0.0-0.5); EOS % 1.9 % (0.0-3.0); HEMATOCRIT 47.7 % (36.0-47.0); HEMOGLOBIN 15.8 g/dl (12.0-15.5); LYMPH # 2.9 10^3/uL (1.5-5.0); LYMPH % 22.7 % (24.0-44.0); MEAN CORPUSCULAR HEMOGLOBIN 33.5 pg (27.0-33.0); MEAN CORPUSCULAR HGB CONC 33.1 g/dl (32.0-36.5); MEAN CORPUSCULAR VOLUME 101.3 fl (80.0-96.0); MONO # 0.9 10^3/uL (0.0-0.8); MONO % 6.7 % (2.0-8.0); NEUTROPHILS # 8.8 10^3/uL (1.5-8.5); NEUTROPHILS % 67.9 % (36.0-66.0); PLATELET COUNT, AUTOMATED 311 10^3/uL (150-450); RED BLOOD COUNT 4.71 10^6/uL (4.00-5.40); WHITE BLOOD COUNT 12.9 10^3/uL (4.0-10.0)
--- NOTE | 2020-12-18 15:02 | REPVR ---
PROCEDURE INFORMATION: Exam: CT Head Without Contrast Exam date and time: 12/18/2020 2:51 PM Age: 45 years old Clinical indication: Pain; Other: Nuero; Additional info: CVA - nursing interventions must not delay CT TECHNIQUE: Imaging protocol: Computed tomography of the head without contrast. Radiation optimization: All CT scans at this facility use at least one of these dose optimization techniques: automated exposure control; mA and/or kV adjustment per patient size (includes targeted exams where dose is matched to clinical indication); or iterative reconstruction. Other technique: STROKE PROTOCOL was implemented. COMPARISON: CT Head without contrast 05/20/2019 12:37 PM FINDINGS: Brain: No acute infarction, masses or hemorrhage is seen. No acute intracranial abnormality is identified.There has been no adverse interval change since the previous study. Small stable chronic hypodense lacunar infarction is noted in the left deep frontal white matter. Mild hypodense encephalomalacia is noted in the right parietal lobe along the tract of the shunt catheter. Examination of the posterior fossa demonstrates no significant abnormality. Cerebral ventricles: Stable right parietal DIALER shunt with its tip in the body of the left lateral ventricle. There is no hydrocephalus. The ventricular system is not dilated and is appropriate for the patient's age. Paranasal sinuses: Visualized sinuses are unremarkable. No fluid levels. Mastoid air cells: Visualized mastoid air cells are well aerated. Vasculature: Stable aneurysmal coiling is again noted in the right parasellar region.Metallic beam hardening artifact slightly limits evaluation in this region. Bones/joints: Unremarkable. No acute fracture. Soft tissues: Unremarkable. IMPRESSION: 1. Stable right parietal DIALER shunt with its tip in the body of the left lateral ventricle. There is no hydrocephalus. 2. Stable aneurysmal coiling is again noted in the right parasellar region.Metallic beam hardening artifact slightly limits evaluation in this region. 3. No acute infarction, masses or hemorrhage is seen. No acute intracranial abnormality is identified.There has been no adverse interval change since the previous study. ASSESSMENT: ASPECTS (Klaudia Stroke Program Early CT Score) is 10. Electronically signed by: Palmer Tran On 12/18/2020 15:01:42 PM
[2020-12-18 15:23] LABS: ALBUMIN 3.7 GM/DL (3.2-5.2); ALT/SGPT 26 U/L (12-78); BILIRUBIN,DIRECT < 0.1 MG/DL (0.0-0.2); BILIRUBIN,TOTAL 0.3 MG/DL (0.2-1.0); BLOOD UREA NITROGEN 11 MG/DL (7-18); CALCIUM LEVEL 8.8 MG/DL (8.5-10.1); CARBON DIOXIDE LEVEL 22 MEQ/L (21-32); CHLORIDE LEVEL 113 MEQ/L (98-107); CK-MB VALUE MASS < 1.0 NG/ML (<3.6); CPK CREATINE PHOSPHOKINASE 78 U/L (26-192); CREATININE FOR GFR 0.56 MG/DL (0.55-1.30); FREE T4 0.79 NG/DL (0.76-1.46); GLOMERULAR FILTRATION RATE > 60.0 (>58); GLUCOSE, FASTING 127 MG/DL (70-100); MAGNESIUM LEVEL 2.2 MG/DL (1.8-2.4); MB/CK RELATIVE INDEX 1.28 (< OR =4); PHOSPHORUS LEVEL 3.7 MG/DL (2.5-4.9); POTASSIUM SERUM 3.7 MEQ/L (3.5-5.1); SODIUM LEVEL 143 MEQ/L (136-145); TOTAL PROTEIN 7.2 GM/DL (6.4-8.2); TROPONIN I < 0.02 NG/ML (< 0.10)
[2020-12-18 15:38] LABS: AMPHETAMINES LEVEL URINE NEGATIVE (NEGATIVE); BARBITURATES URINE NEGATIVE (NEGATIVE); BENZODIAZEPINES URINE POSITIVE (NEGATIVE); CANNABINOIDS URINE NEGATIVE (NEGATIVE); COCAINE METABOLITE URINE NEGATIVE (NEGATIVE); METHADONE URINE NEGATIVE (NEGATIVE); OPIATES URINE NEGATIVE (NEGATIVE); PHENCYCLIDINE URINE NEGATIVE (NEGATIVE)
--- NOTE | 2020-12-18 15:57 | REP ---
INDICATION: CVA. COMPARISON: 05/20/2019. TECHNIQUE: AP and lateral views of the skull, neck, chest, abdomen and pelvis are performed. FINDINGS: The visualized ventriculoperitoneal shunt appears intact. There is no definite focal kink or discontinuity identified. The visualized cervical spine is grossly unremarkable. The bowel gas pattern in the abdomen and pelvis is unremarkable with no evidence of bowel obstruction. There are mild degenerative changes of the lumbar spine. IUD is seen in the pelvis to the right of midline. IMPRESSION: The visualized ventriculoperitoneal shunt appears intact. <Electronically signed by Forest Dean > 12/18/20 [id number]
--- NOTE | 2020-12-18 16:10 | REP ---
INDICATION: CVA. COMPARISON: 04/23/2012. TECHNIQUE: Single portable AP view of the chest was performed. FINDINGS: There is no acute infiltrate or pulmonary edema. Lungs are clear. The heart is mildly enlarged. The mediastinal silhouette is unremarkable. The visualized osseous structures are intact. IMPRESSION: No acute pulmonary disease.Mild cardiomegaly. <Electronically signed by Forest Dean > 12/18/20 [id number]
[2020-12-18 16:46] LABS: INR 0.85; PROTHROMBIN TIME 11.8 SECONDS (12.5-14.3)
[2020-12-18 16:47] LABS: PARTIAL THROMBOPLASTIN TIME 30.9 SECONDS (24.2-38.5)
[2020-12-18] MEDS ORDERED: ASPI-161 PO (17:32)
[2020-12-18] MEDS ORDERED: BACL5TAB2 PO (17:32)
[2020-12-18] MEDS ORDERED: LEXA1TAB2 PO (17:32)
[2020-12-18] MEDS ORDERED: GABA-282 PO (17:32)
[2020-12-18 17:34] LABS: RSV AMPLIFICATION NEGATIVE (NEGATIVE)
--- NOTE | 2020-12-18 17:40 | ECGEPIP ---
[facility] - ED Test Date: 2020-12-18 Pat Name: SAMEER SILVA Department: Room: - Gender: Female Category Development Manager: TACO : 1975 Requested By: JOELLEN Lambert Order Number: [id number] Reading MD: Taty Meeks Measurements Intervals Forbes Rate: 56 P: 6 OK: 118 QRS: -5 QRSD: 78 T: 32 QT: 444 QTc: 428 Interpretive Statements Sinus bradycardia similar 06/16/17 Electronically Signed on 12-18-2020 17:39:56 EDT by Taty Meeks
[2020-12-18] MEDS ORDERED: MAALOX 30 ML SUSP *UDC PO PRN (19:30)
[2020-12-18] MEDS ORDERED: MOM 30ML SUSPENSION UDC PO PRN (19:30)
[2020-12-18] MEDS ORDERED: BACLOFEN 5MG PER 1/2 TABLET PO PRN (19:45)
--- NOTE | 2020-12-18 19:58 | HPEPDOC ---
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 Patient states that she remains alert and awake during these episodes that yoel ry loss, tongue biting or incontinence. Patient denies new onset weakness or numbness. Of note patient was admitted to [facility] where she receives her neurology care for rule out of possible CVA. Imaging was unremarkable for new onset ischemic stroke, intracranial stenosis or large vessel occlusion. Patient's BP shunt series. Return to be stable. Patient was started on gabapentin 3 times a day and Flexeril when necessary for management of pain. Her home amitriptyline was stopped due to complaint of nightmares. 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 PAST MEDICAL HISTORY: HTN Anxiety Seizures R MCA aneurysm, s/p rupture and coiling with clipping L thalamic infarct CVA x 2 PAST SURGICAL HISTORY: Cholecystectomy SOCIAL HISTORY: Smoker, 1 PPD Denies etoh use Denies illicit drug use FAMILY HISTORY: reviewed with patient, no contributory history was identified ALLERGIES: Please see below. REVIEW OF SYSTEMS: 10 point ROS was conducted, relevant findings are noted in the HPI. HOME MEDICATIONS: Please see below. PHYSICAL EXAMINATION: VITAL SIGNS: please see below General: NAD, comfortable HEENT: PERRLA, EOMI, sclerae clear Neck: supple, normal ROM, no JVD Respiratory: lungs CTAB, no wheeze, no rales, no crackles CVS: RRR, normal S1, S2, no murmurs Abdo: soft, no masses, no hepatosplenomegaly, BS+, no rebound tenderness Extremities: no edema, pulses 2+ MSK: no joint deformities, normal ROM Neuro: 3/5 strength in RUE. 4/5 strength in RLE. Horizontal nystagmus. No vertical nystagmus. Speech clear. PERRLA. No tongue/uvula deviation. Gait not assessed. Psych: calm, cooperative, AAO x 3 LABORATORY DATA: See below. IMAGING: SYSTEMS AUDITOR shunt study (12/18/20/): The visualized ventriculoperitoneal shunt appears intact. There is no definite focal kink or discontinuity identified. The visualized cervical spine is grossly unremarkable. The bowel gas pattern in the abdomen and pelvis is unremarkable with no evidence of bowel obstruction. There are mild degenerative changes of the lumbar spine. IUD is seen in the pelvis to the right of midline. IMPRESSION: The visualized ventriculoperitoneal shunt appears intact. MICROBIOLOGY: Please see below. 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 Admitted for workup of possible sz activity. . PLAN: #Tonic clonic movement of extremities - remains alert and awake, unclear if true seizure activity vs somatic symptoms - CT head without acute findings, SYSTEMS AUDITOR shunt study shows patent SYSTEMS AUDITOR stunt - neurology consult placed, d/w Dr. 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 Asymptomatic - takes atenolol 50 mg daily for BP control - reduce dose to 25 mg daily #Hx of CVA - c/w ASA 81 mg daily - c/ w simvastatin 20 mg qhs #R MCA pcomm aneurym - s/p coilin, clipping #Hydrocephalus - has SYSTEMS AUDITOR shunt in place, patent on imaging, reviewed as above. #Anxiety,depression - c/w alprazolam, lexapro home dosage DVT ppx: heparin 5000 units q8h sc Vital Signs Vital Signs Date Time Temp Pulse Resp B/P (MAP) Pulse Ox O2 Delivery O2 Flow Rate FiO2 12/18/20 19:31 54 16 129/72 (91) 98 Room Air 12/18/20 12:33 98.7 Laboratory Data Labs 24H Laboratory Tests 2 12/18/20 13:20: Immature Granulocyte % (Auto) 0.3, Neutrophils (%) (Auto) 67.9H, Lymphocytes (%) (Auto) 22.7L, Monocytes (%) (Auto) 6.7, Eosinophils (%) (Auto) 1.9, Basophils (%) (Auto) 0.5, Neutrophils # (Auto) 8.8H, Lymphocytes # (Auto) 2.9, Monocytes # (Auto) 0.9H, Eosinophils # (Auto) 0.2, Basophils # (Auto) 0.1, Nucleated Red Blood Cells % (auto) 0.0, Anion Gap 8, Glomerular Filtration Rate > 60.0, Calcium Level 8.8, Phosphorus Level 3.7, Magnesium Level 2.2, Total Bilirubin 0.3, Direct Bilirubin < 0.1, Aspartate Amino Transf (AST/SGOT) 11, Alanine Aminotransferase (ALT/SGPT) 26, Alkaline Phosphatase 57, Total Creatine Kinase 78, Creatine Kinase MB < 1.0, Creatine Kinase MB Relative Index 1.28, Troponin I < 0.02, Total Protein 7.2, Albumin 3.7, Albumin/Globulin Ratio 1.1L, Thyroid Stimulating Hormone (TSH) 1.200, Free Thyroxine 0.79 12/18/20 14:54: Urine Color YELLOW, Urine Appearance CLOUDYH, Urine pH 7.0, Urine Specific [place] 1.003, Urine Protein NEGATIVE, Urine Glucose (UA) NEGATIVE, Urine Ketones NEGATIVE, Urine Blood 1+H, Urine Nitrite NEGATIVE, Urine Bilirubin NEGATIVE, Urine Urobilinogen 0.2, Urine Leukocyte Esterase NEGATIVE, Urine WBC (Auto) 17H, Urine RBC (Auto) 70H, Urine Hyaline Casts (Auto) 0, Urine Bacteria (Auto) 2+H, Urine Squamous Epithelial Cells 0, Urine Sperm (Auto) , Urine Opiates Screen NEGATIVE, Urine Methadone Screen NEGATIVE, Urine Barbiturates Screen NEGATIVE, Urine Phencyclidine Screen NEGATIVE, Urine Amphetamines Screen NEGATIVE, Urine Benzodiazepines Screen POSITIVEH, Urine Cocaine Metabolite Screen NEGATIVE, Urine Cannabinoids Screen NEGATIVE 12/18/20 16:14: Prothrombin Time 11.8, Prothromb Time International Ratio 0.85, Activated Partial Thromboplast Time 30.9 12/18/20 16:16: Coronavirus (COVID-19)(PCR) NEGATIVE, Influenza Type A (RT-PCR) NEGATIVE, Influenza Type B (RT-PCR) NEGATIVE, Respiratory Syncytial Virus (PCR) NEGATIVE CBC/BMP Laboratory Tests 12/18/20 13:20 Microbiology Microbiology 12/18/20 Urine Culture, Received Pending Home Medications Scheduled Alprazolam (Alprazolam) 0.5 Mg Tab, 1.25 MG PO DAILY Aspirin (Aspirin EC) 81 Mg Tablet.dr, 81 MG PO DAILY Atenolol (Atenolol) 50 Mg Tab, 50 MG PO DAILY Escitalopram Oxalate (Lexapro) 20 Mg Tablet, 20 MG PO DAILY Gabapentin (Gabapentin) 300 Mg Capsule, 300 MG PO TID Simvastatin (Zocor) 20 Mg Tab, 20 MG PO DAILY Topiramate (Topiramate) 50 Mg Tab, 150 MG PO BID Scheduled PRN Acetaminophen (Acetaminophen) 325 Mg Tab, 650 MG PO Q6H PRN for PAIN Baclofen (Baclofen) 5 Mg Tablet, 5 MG PO TID PRN for SPASMS Allergies Coded Allergies: Contrast Media (Verified Allergy, Severe, ANAPHYLAXIS, 11/24/07) Penicillins (Verified Allergy, Unknown, 05/20/19) RUTH WOLFE MD Dec 18, 2020 19:57
[2020-12-18] MEDS ORDERED: PILL CUTTER 1 EACH XX PRN (20:00)
[2020-12-18] MEDS: TOPIRAMATE (TopAMAX) 100 MG TAB PO SCH (20:59)
[2020-12-18] MEDS: ACETAMINOPHEN TAB 650MG DOSE (2X325MG) PO PRN (20:59)
[2020-12-18] MEDS: TOPIRAMATE (TopAMAX) 25 MG TAB PO SCH (20:59)
[2020-12-18] MEDS: DOCUSATE SODIUM 100MG CAPSULE PO SCH (21:00)
[2020-12-18] MEDS: GABAPENTIN 300 MG CAP PO SCH (21:02)
[2020-12-18 23:08] VITALS: BP 140/88
[2020-12-18] MEDS ORDERED: SLF 3 ML SYR IV PRN (23:25)
[2020-12-19] MEDS ORDERED: IBUPROFEN 800 MG TAB PO PRN (04:00)
[2020-12-19] MEDS: ACETAMINOPHEN TAB 650MG DOSE (2X325MG) PO PRN (04:14)
[2020-12-19 05:45] VITALS: BP 140/77
[2020-12-19] MEDS: SLF 3 ML SYR IV SCH ×2 (05:48→14:39)
[2020-12-19] MEDS: HEPARIN SOD (PORCINE) 5000UNITS/ML 1ML VIAL/SYRINGE SC SCH ×2 (05:48→14:39)
[2020-12-19 05:58] LABS: BASO # 0.1 10^3/uL (0.0-0.2); BASO % 0.7 % (0.0-1.0); EOS # 0.4 10^3/uL (0.0-0.5); EOS % 3.4 % (0.0-3.0); HEMATOCRIT 47.2 % (36.0-47.0); HEMOGLOBIN 15.4 g/dl (12.0-15.5); LYMPH # 3.5 10^3/uL (1.5-5.0); LYMPH % 29.4 % (24.0-44.0); MEAN CORPUSCULAR HGB CONC 32.6 g/dl (32.0-36.5); MEAN CORPUSCULAR VOLUME 101.1 fl (80.0-96.0); MONO # 1.2 10^3/uL (0.0-0.8); NEUTROPHILS # 6.7 10^3/uL (1.5-8.5); NEUTROPHILS % 56.1 % (36.0-66.0); PLATELET COUNT, AUTOMATED 300 10^3/uL (150-450); RED BLOOD COUNT 4.67 10^6/uL (4.00-5.40); WHITE BLOOD COUNT 11.9 10^3/uL (4.0-10.0)
[2020-12-19 06:21] LABS: ALBUMIN 3.4 GM/DL (3.2-5.2); ALT/SGPT 28 U/L (12-78); BILIRUBIN,TOTAL 0.4 MG/DL (0.2-1.0); BLOOD UREA NITROGEN 10 MG/DL (7-18); CALCIUM LEVEL 8.6 MG/DL (8.5-10.1); CARBON DIOXIDE LEVEL 21 MEQ/L (21-32); CHLORIDE LEVEL 113 MEQ/L (98-107); CHOLESTEROL LEVEL 146 MG/DL (<200); CHOLESTEROL RISK RATIO 3.244 (<5); CREATININE FOR GFR 0.51 MG/DL (0.55-1.30); GLOMERULAR FILTRATION RATE > 60.0 (>58); GLUCOSE, FASTING 107 MG/DL (70-100); HDL CHOLESTEROL 45 MG/DL (>40); LDL CHOLESTEROL 59 MG/DL (<100); MAGNESIUM LEVEL 2.2 MG/DL (1.8-2.4); NON-HDL-C 101 MG/DL; POTASSIUM SERUM 3.7 MEQ/L (3.5-5.1); SODIUM LEVEL 141 MEQ/L (136-145); TRIGLYCERIDES LEVEL 209 MG/DL (<150)
[2020-12-19 07:39] VITALS: BP 133/69
[2020-12-19] MEDS ORDERED: atenoloL 25 MG TAB PO SCH (09:00)
[2020-12-19] MEDS ORDERED: ASPIRIN 81MG ENTERIC TABLET PO SCH (09:00)
[2020-12-19] MEDS ORDERED: ALPRAZolam 0.5 MG TAB PO SCH (09:00)
[2020-12-19] MEDS ORDERED: ESCITALOPRAM OXALATE 10 MG TAB (LEXAPRO) PO SCH (09:00)
[2020-12-19] MEDS: DOCUSATE SODIUM 100MG CAPSULE PO SCH (09:33)
[2020-12-19 09:34] VITALS: BP 133/69
[2020-12-19] MEDS: GABAPENTIN 300 MG CAP PO SCH ×2 (09:34→16:57)
[2020-12-19] MEDS: TOPIRAMATE (TopAMAX) 100 MG TAB PO SCH (09:54)
[2020-12-19] MEDS: TOPIRAMATE (TopAMAX) 25 MG TAB PO SCH (09:55)
[2020-12-19 12:00] VITALS: BP 124/70
[2020-12-19 16:00] VITALS: BP 107/64
[2020-12-19] MEDS ORDERED: ATEN25TA PO (17:30)
[2020-12-19] MEDS ORDERED: SIMVASTATIN 20 MG TAB PO SCH (21:00)
== END 2020-12-19 17:46 | disposition home or self-care (01) ==
LOC: M ED 12:22 → M ED INP 19:29 → ENRESERV 21:00 → M PCU 23:09
PROVIDERS: ADMIT Family Medicine; ATTEND Family Medicine
DX: G40.89 Other seizures (principal); R00.1 Bradycardia, unspecified; I10 Essential (primary) hypertension; F17.218 Nicotine dependence, cigarettes, with other nicotine-induced disorders; Z86.73 Personal history of transient ischemic attack (TIA), and cerebral infarction without residual deficits; F41.9 Anxiety disorder, unspecified; Z88.0 Allergy status to penicillin; Z91.041 Radiographic dye allergy status; F32.9 Major depressive disorder, single episode, unspecified; Z79.82 Long term (current) use of aspirin; Z79.899 Other long term (current) drug therapy
CPT/HCPCS: 36415; 70450; 71045; 75809; 80048; 80053; 80061; 80076; 80143; 80307; 81001; 82550; 82553; 83036; 83735; 84100; 84439; 84443; 84484; 85025; 85610; 85730; 87086; 87631; 93005; 93041; 94760; 96372; 97161; 97165; 99285; J1644

== ENCOUNTER → 2024-05-26 | Outpatient (CLI) | payer BC ==
[~2024-05-26] MED LIST changes: +ASPI-615 PO; +ATEN25TA PO; +BACL5TAB2 PO; +GABA-1172 PO; +LEXA1TAB2 PO; +SIMV-253 PO; +TOPI-21 PO; -TOPI50TA9 PO; -ZOCO20TA PO
== END ==
LOC: M WUC 13:40
PROVIDERS: ATTEND Nurse Practitioner Family
DX: M25.571 Pain in right ankle and joints of right foot (principal)

== ENCOUNTER → 2024-07-24 | Outpatient (CLI) | payer BC | LOC: M RAD 12:59 | PROVIDERS: ATTEND Student in an Organized Health Care Education/Training Program | DX: J20.9 Acute bronchitis, unspecified (principal) ==

== ENCOUNTER → 2024-08-01 | Outpatient (CLI) | payer BC ==
[2024-08-01 11:21] LABS: HEMATOCRIT 44.1 % (36.0-47.0); HEMOGLOBIN 14.6 g/dl (12.0-15.5); MEAN CORPUSCULAR HEMOGLOBIN 32.4 pg (27.0-33.0); MEAN CORPUSCULAR HGB CONC 33.1 g/dl (32.0-36.5); MEAN CORPUSCULAR VOLUME 97.8 fl (80.0-96.0); PLATELET COUNT, AUTOMATED 346 10^3/uL (150-450); RED BLOOD COUNT 4.51 10^6/uL (4.00-5.40); WHITE BLOOD COUNT 10.5 10^3/uL (4.0-10.0)
[2024-08-01 11:48] LABS: ALBUMIN 3.7 G/DL (3.2-5.2); ALKALINE PHOSPHATASE 49 U/L (35-104); ALT/SGPT 58 U/L (7.0-40); AST/SGOT 25 U/L (<34); BILIRUBIN,TOTAL 0.3 MG/DL (0.3-1.2); BLOOD UREA NITROGEN 14 MG/DL (9-23); CALCIUM LEVEL 9.2 MG/DL (8.5-10.1); CARBON DIOXIDE LEVEL 20 MMOL/L (20-31); CHLORIDE LEVEL 111 MMOL/L (98-107); CREATININE FOR GFR 0.54 MG/DL (0.55-1.30); GLOMERULAR FILTRATION RATE > 60.0 (>51); GLUCOSE, FASTING 105 MG/DL (60-100); POTASSIUM SERUM 4.2 MMOL/L (3.5-5.1); SODIUM LEVEL 141 MMOL/L (136-145); THYROID STIMULATING HORMONE 1.197 uIU/ML (0.55-4.78); TOTAL PROTEIN 7.2 G/DL (5.7-8.2)
[2024-08-01 11:49] LABS: FREE T4 1.18 NG/DL (0.89-1.76)
== END ==
LOC: M LAB 10:19
PROVIDERS: ATTEND Nurse Practitioner Adult Health
DX: I10 Essential (primary) hypertension (principal)

== ENCOUNTER → 2025-05-24 | Outpatient (CLI) | payer BC ==
[~2025-05-24] MED LIST changes: +SENN-225 PO; -SENO8.6T5 PO; -VITA500T17 PO; +VITA500T8 PO
== END ==
LOC: M RAD 13:19
PROVIDERS: ATTEND Nurse Practitioner Family
DX: Z98.2 Presence of cerebrospinal fluid drainage device (principal)

== ENCOUNTER → 2025-06-21 | Outpatient (CLI) | payer BC | LOC: M RAD 13:06 | PROVIDERS: ATTEND Nurse Practitioner Family | DX: R09.89 Other specified symptoms and signs involving the circulatory and respiratory systems (principal); Z86.79 Personal history of other diseases of the circulatory system; Z98.2 Presence of cerebrospinal fluid drainage device ==